=== PATIENT | female | born 1990 | race Two or more races ===

== ENCOUNTER 2016-05-13 07:57 | Emergency (ER) | payer SELFPAY ==
[2016-05-13] MEDS ORDERED: ACETAMINOPHEN 325 MG TABLET PO ONE (08:03)
[2016-05-13] MEDS ORDERED: ONDANSETRON 4 MG TAB.RAPDIS PO ONE (08:16)
--- NOTE | 2016-05-13 08:41 | ER Document Report ---
HPI - HPI Patient complains to provider of: body aches, legs tingling Onset: Other - 3 days Onset/Duration: Persistent Quality of pain: Achy Severity: Severe Pain Level: 5 Context: Patient presents emergency department with reports of not feeling well since Monday- 4 days ago. She reports her body aches and her legs are tingling. She has not been able to eat for the past 2 days. She has been drinking tea. She denies vomiting, denies abdominal pain, denies pain with void. Reports she reports works at [employer]. She did not get her influenza vaccine Associated Symptoms: Diarrhea, Fever, Nausea Exacerbated by: Denies Relieved by: Denies Similar symptoms previously: No Recently seen / treated by doctor: No - REPRODUCTIVE Reproductive: DENIES: : - DERM Skin Color: Normal Past Medical History - General Information source: Patient Last Menstrual Period: iud - Social History Smoking Status: Never Smoker Cigarette use (# per day): No Chew tobacco use (# tins/day): No Frequency of alcohol use: None Drug Abuse: None Occupation: [employer] Lives with: Family Family History: Reviewed & Not Pertinent, Other - Denied any family history of diabetes, hypertension Patient has suicidal ideation: No Patient has homicidal ideation: No - Medical History Medical History: Negative Renal/ Medical History: Denies: Hx Peritoneal Dialysis Surgical Hx: Negative - Immunizations Hx Diphtheria, Pertussis, Tetanus Vaccination: Yes Vertical Provider Document - CONSTITUTIONAL Agree With Documented VS: Yes Exam Limitations: No Limitations General Appearance: WD/WN, No Apparent Distress - nontoxic looking - INFECTION CONTROL TRAVEL OUTSIDE OF THE [place] IN LAST 30 DAYS: No - HEENT HEENT: Atraumatic, Normal ENT Exam, Normocephalic. negative: Conjuctival Injection, Pharyngeal Exudate, Pharyngeal Erythema, Tympanic Membrane Red, Tympanic Membrane Bulging - NECK Neck: Normal Inspection, Supple. negative: Lymphadenopathy-Left, Lymphadenopathy-Right - RESPIRATORY Respiratory: Breath Sounds Normal, No Respiratory Distress O2 Sat by Pulse Oximetry: 98 - CARDIOVASCULAR Cardiovascular: Tachycardia - GI/ABDOMEN Gastrointestinal: Abdomen Soft, Abdomen Non-Tender - MUSCULOSKELETAL/EXTREMETIES Musculoskeletal/Extremeties: MAEW, FROM - NEURO Level of Consciousness: Awake, Alert, Appropriate Motor/Sensory: No Motor Deficit - DERM Integumentary: Warm, Dry, No Rash Course - Re-evaluation Re-evalutation: 05/13/16 09:32 patient drinking po fluids. moderate leukocytes noted to UA. will treat for UTI , flu like sx. no tamiflu since patient has had sx since Monday-4 days 05/13/16 10:21 Patient drinking by mouth fluids has had 2 glasses of smitha cachorro without vomiting. Reports she feels better. Patient instructed on all medications importance of pushing fluids and follow up with primary care provider. Patient is nontoxic looking. HR decreased from 129 to 100. - Vital Signs Vital signs: Temp Pulse Resp BP Pulse Ox 102.0 F H 129 H 98 H 123/68 98 05/13/16 08:00 05/13/16 08:00 05/13/16 08:00 05/13/16 08:00 05/13/16 08:00 Discharge - Discharge Clinical Impression: Flu-like symptoms, Urinary tract infection Condition: Stable Disposition: HOME, SELF-CARE Instructions: Acetaminophen, Fever ([facility]), Trimethoprim-Sulfa ([facility]), Urinary Tract Infection ([facility]), Antinausea Medication ([facility]) Additional Instructions: *You have been evaluated for flu like symptoms today, body aches, fever, UTI *Increase fluid intake as discussed *Take medication as prescribed *Monitor your temperature, take Tylenol or Motrin as indicated *Follow up with a primary care provider within one week *Return to ED for worsening condition, changes, needs Prescriptions: Ondansetron [Zofran Odt 4 mg Tablet] 1 - 2 tab PO Q4H #10 tab.rapdis Sulfamethoxazole/Trimethoprim [Bactrim Ds Tablet] 1 each PO BID #10 tablet Forms: Elevated Blood Pressure, Return to Work
[2016-05-13 09:17] LABS: APPEARANCE,URINE CLOUDY; BILIRUBIN,URINE NEGATIVE (NEGATIVE); GLUCOSE, URINE NEGATIVE (NEGATIVE); KETONES,URINE 80 mg/dL (NEGATIVE); LEUKOCYTE ESTERASE,URINE MODERATE (NEGATIVE); NITRITE,URINE NEGATIVE (NEGATIVE); PROTEIN,URINE NEGATIVE (NEGATIVE); URINE SPECIFIC GRAVITY 1.029
[2016-05-13 10:21] VITALS: BP 115/67
== END 2016-05-13 10:30 | disposition home or self-care (01) ==
LOC: ER 07:57
DX: N39.0 Urinary tract infection, site not specified (principal); R52 Pain, unspecified; R20.2 Paresthesia of skin; R19.7 Diarrhea, unspecified; R50.9 Fever, unspecified; R00.0 Tachycardia, unspecified; R11.0 Nausea
CPT/HCPCS: 99283; 81025; 81001; 87804; S0119

== ENCOUNTER 2016-12-13 12:53 | Emergency (ER) | payer SELFPAY ==
[2016-12-13 13:13] VITALS: BP 116/80
--- NOTE | 2016-12-13 13:52 | ER Document Report ---
ED GI/ - General Chief Complaint: Flank Pain Stated Complaint: ABDOMINAL PAIN Time Seen by Provider: 12/13/16 13:52 Mode of Arrival: Ambulatory Information source: Patient Notes: 26 yo female hx UTI in may, c/o right flank pain yesterday, suprapubic discomfort with dysuria at urethra x 2 days. No nausea or vomiting. No fever or chills. , hx chlamydia in past. New vaginal d/c without odor. TRAVEL OUTSIDE OF THE [place] IN LAST 30 DAYS: No - Related Data Allergies/Adverse Reactions: No Known Allergies Allergy (Verified 12/13/16 13:13) Past Medical History - General Information source: Patient - Social History Smoking Status: Never Smoker Frequency of alcohol use: None Drug Abuse: None Lives with: Family Family History: Reviewed & Not Pertinent, Other - Denied any family history of diabetes, hypertension - Medical History Medical History: Negative Renal/ Medical History: Denies: Hx Peritoneal Dialysis Surgical Hx: Negative - Immunizations Hx Diphtheria, Pertussis, Tetanus Vaccination: Yes Physical Exam - Vital signs Vitals: Temp Pulse Resp BP Pulse Ox 98.8 F 74 16 116/80 100 12/13/16 13:11 12/13/16 13:11 12/13/16 13:11 12/13/16 13:11 12/13/16 13:11 Interpretation: Normal - General General appearance: Appears well, Alert In distress: None - HEENT Head: Normocephalic, Atraumatic Eyes: Normal Conjunctiva: Normal Pupils: PERRL Neck: Supple - Respiratory Respiratory status: No respiratory distress Chest status: Nontender Breath sounds: Normal Chest palpation: Normal - Cardiovascular Rhythm: Regular Heart sounds: Normal auscultation Murmur: No - Abdominal Inspection: Normal Distension: No distension Bowel sounds: Normal Tenderness: Nontender. No: Tender Organomegaly: No organomegaly - Genitourinary External exam: Normal Speculum exam: Cervix closed, Vaginal discharge - thin homogenous copius Vaginal bleeding: None - Back Back: Normal, Tender - Right lumba muscle, also has "chronic ingrown hair since April", crusted dark lesion 6mm, varigated color, pt needs dermatology evaluation and possible biopsy which I explained to the pt. No: CVA tenderness - Extremities General upper extremity: Normal inspection, Nontender, Normal color, Normal ROM , Normal temperature General lower extremity: Normal inspection, Nontender, Normal color, Normal ROM , Normal temperature, Normal weight bearing. No: Kathryn's sign - Neurological Neuro grossly intact: Yes Cognition: Normal Orientation: AAOx4 My Coma Scale Eye Opening: Spontaneous [place] Coma Scale Verbal: Oriented My Coma Scale Motor: Obeys Commands My Coma Scale Total: 15 Speech: Normal Motor strength normal: LUE, RUE, LLE, RLE Sensory: Normal - Psychological Associated symptoms: Normal affect, Normal mood - Skin Skin Temperature: Warm Skin Moisture: Dry Skin Color: Normal Notes: see above Course - Re-evaluation Re-evalutation: 12/13/16 14:39 UA is negative urinalysis is negative. She gets frequent bacterial vaginosis about every 3 months. 12/13/16 15:17 Wet prep indicative of bacterial vaginosis - Vital Signs Vital signs: Temp Pulse Resp BP Pulse Ox 98.8 F 74 16 116/80 100 12/13/16 13:11 12/13/16 13:11 12/13/16 13:11 12/13/16 13:11 12/13/16 13:11 Discharge - Discharge Clinical Impression: Bacterial vaginosis Condition: Good Disposition: HOME, SELF-CARE Instructions: Vaginosis, Bacterial ([facility]), Metronidazole ([facility]) Additional Instructions: see obgyn if persists no alcohol with the metronidizole eat more yogurt with active yeast culture Please complete the patient satisfaction survey if you get one, and return it.. If you do not receive a survey, then you can go to the [facility] website, [email or web address] and place your comments about your very good care. Thank you very much. It was a pleasure being your medical provider today. Prescriptions: Metronidazole [Flagyl 500 mg Tablet] 500 mg PO BID #14 tablet Forms: Return to Work Referrals: BEN HUNG MD [ACTIVE STAFF] - Follow up as needed
[2016-12-13 14:28] LABS: APPEARANCE,URINE SLIGHTLY-CLOUDY; BILIRUBIN,URINE NEGATIVE (NEGATIVE); GLUCOSE, URINE NEGATIVE (NEGATIVE); KETONES,URINE NEGATIVE (NEGATIVE); LEUKOCYTE ESTERASE,URINE NEGATIVE (NEGATIVE); NITRITE,URINE NEGATIVE (NEGATIVE); PROTEIN,URINE NEGATIVE (NEGATIVE); URINE SPECIFIC GRAVITY 1.018; UROBILINOGEN,URINE NEGATIVE mg/dL (<2.0)
[2016-12-13 16:13] LABS: CHLAM PCR NOT DETECTED (NOT DETECT)
== END 2016-12-13 15:23 | disposition home or self-care (01) ==
LOC: ER 12:53
DX: N76.0 Acute vaginitis (principal); B96.89 Other specified bacterial agents as the cause of diseases classified elsewhere; R10.9 Unspecified abdominal pain
CPT/HCPCS: 81001; 81025; 87086; 87210; 87491; 87591; 99284

== ENCOUNTER 2019-01-27 07:56 | Emergency (ER) | payer SELFPAY ==
[2019-01-27 09:24] LABS: ABSOLUTE LYMPHOCYTES (AUTO) 1.3 10^3/uL (0.5-4.7); ABSOLUTE MONOCYTES (AUTO) 0.3 10^3/uL (0.1-1.4); ABSOLUTE NEUT (AUTO) 4.5 10^3/uL (1.7-8.2); BASOPHILS % (AUTO) 0.5 % (0-2); EOSINOPHILS % (AUTO) 0.5 % (0-6); HEMATOCRIT 40.9 % (36.0-47.0); HEMOGLOBIN 13.4 g/dL (12.0-15.5); LYMPHOCYTES % (AUTO) 21.2 % (13-45); MEAN CORPUSCULAR HEMOGLOBIN 25.7 pg (27.0-33.4); MEAN CORPUSCULAR HGB CONC 32.9 g/dL (32.0-36.0); MEAN CORPUSCULAR VOLUME 78 fl (80-97); MONOCYTES % (AUTO) 5.3 % (3-13); PLATELET COUNT 349 10^3/uL (150-450); RED BLOOD COUNT 5.23 10^6/uL (3.72-5.28); RED CELL DISTRIBUTION WIDTH 14.4 % (11.5-14.0); SEGMENTED NEUTROPHILS % (AUTO) 72.5 % (42-78); TOTAL CELLS COUNTED % (AUTO) 100 %; WHITE BLOOD COUNT 6.2 10^3/uL (4.0-10.5)
[2019-01-27 09:39] LABS: APPEARANCE,URINE SLIGHTLY-CLOUDY; BILIRUBIN,URINE NEGATIVE (NEGATIVE); COLOR,URINE YELLOW; GLUCOSE, URINE NEGATIVE (NEGATIVE); KETONES,URINE NEGATIVE (NEGATIVE); LEUKOCYTE ESTERASE,URINE NEGATIVE (NEGATIVE); NITRITE,URINE NEGATIVE (NEGATIVE); PROTEIN,URINE NEGATIVE (NEGATIVE); URINE SPECIFIC GRAVITY 1.023; UROBILINOGEN,URINE NEGATIVE mg/dL (<2.0)
[2019-01-27 09:48] LABS: ALBUMIN 4.5 g/dL (3.5-5.0); ALKALINE PHOSPHATASE 84 U/L (38-126); ANION GAP 9 (5-19); ASPARTATE AMINO TRANSFERASE 21 U/L (14-36); BILIRUBIN,DIRECT 0.2 mg/dL (0.0-0.4); BILIRUBIN,TOTAL 0.5 mg/dL (0.2-1.3); BLOOD UREA NITROGEN 11 mg/dL (7-20); CALCIUM 9.6 mg/dL (8.4-10.2); CARBON DIOXIDE 25 mmol/L (22-30); CHLORIDE 108 mmol/L (98-107); GLUCOSE 101 mg/dL (75-110); POTASSIUM 4.8 mmol/L (3.6-5.0)
--- NOTE | 2019-01-27 10:07 | RADIOLOGY REPORT (SQ) ---
EXAM DESCRIPTION: U/S OB TRANSVAGINAL W/O DOP COMPLETED DATE/TIME: 01/27/2019 9:51 am REASON FOR STUDY: 5 weeks, bleeding with clots COMPARISON: None. TECHNIQUE: Transvaginal static and realtime grayscale images acquired of the pelvis. Additional carmen cted spectral and color Doppler images recorded. All images stored on PACs. CLINICAL AGE: 5 weeks 5 days BHCG: Pending. LIMITATIONS: None. FINDINGS: UTERUS: No visualized intrauterine . RIGHT ADNEXA: Normal ovary with normal vascular flow. No adnexal free fluid. 1.1 cm cyst. LEFT ADNEXA: Normal ovary with normal vascular flow. No adnexal free fluid. No adnexal masses. FREE FLUID: None. OTHER: No other significant finding. IMPRESSION: NO VISUALIZED INTRA- OR EXTRAUTERINE . bHCG LEVEL NOT AVAILABLE FOR CORRELATION WITH US FINDINGS. ECTOPIC CANNOT BE EXCLUDED. FOLLOW-UP ULTRASOUND AND SERIAL BHCG LEVELS STRONGLY RECOMMENDED TO ACCURATELY ASSESS STATU S. TECHNICAL DOCUMENTATION: JOB ID: [id number] [employer]- All Rights Reserved Reading location - IP/workstation name: [email or web address]
[2019-01-27 11:20] VITALS: BP 104/66
--- NOTE | 2019-01-27 11:21 | ER Document Report ---
Entered by JAQUELINE LIANG SCRIBE 01/27/19 0914 Acting as scribe for:JEZ DAY MD ED GI/ - General Chief Complaint: Vaginal Bleeding Stated Complaint: VAGINAL BLEEDING Time Seen by Provider: 01/27/19 09:07 Primary Care Provider: [facility] [Provider Group] - 01/29/19 (Call the office tomorrow to schedule an appointment for Monday.) JUAN C MILTON, GEOVANNA-C [Primary Care Provider] - Follow up as needed Mode of Arrival: Ambulatory Information source: Patient Notes: This 28-year-old female patient comes emergency room with a history of vaginal spotting that started yesterday. Today she noted some clots with spotting. There is no cramps. She did a positive home test 2 days ago. Last menstrual period was 12/18/2018. The patient is A0 TRAVEL OUTSIDE OF THE [place] IN LAST 30 DAYS: No - Related Data Allergies/Adverse Reactions: No Known Allergies Allergy (Verified 01/27/19 08:12) Past Medical History - General Information source: Patient - Social History Smoking Status: Never Smoker Cigarette use (# per day): No Frequency of alcohol use: None Drug Abuse: None Lives with: Family Family History: Reviewed & Not Pertinent, Other - Denied any family history of diabetes, hypertension Patient has suicidal ideation: No Patient has homicidal ideation: No - Immunizations Hx Diphtheria, Pertussis, Tetanus Vaccination: Yes Review of Systems - Review of Systems Constitutional: No symptoms reported EENT: No symptoms reported Cardiovascular: No symptoms reported Respiratory: No symptoms reported Gastrointestinal: No symptoms reported Genitourinary: No symptoms reported Female Genitourinary: See HPI, Last menstrual period - Dec 18, , Vaginal bleeding Musculoskeletal: No symptoms reported Skin: No symptoms reported Hematologic/Lymphatic: No symptoms reported Neurological/Psychological: No symptoms reported -: Yes All other systems reviewed and negative Physical Exam - Vital signs Vitals: Temp Pulse Resp BP Pulse Ox 99.1 F 102 H 16 138/78 H 100 01/27/19 08:00 01/27/19 08:00 01/27/19 08:00 01/27/19 08:00 01/27/19 08:00 - Notes Notes: Physical Exam: General: Alert, appears well. HEENT: Normocephalic. Atraumatic. PERRL. Extraocular movements intact. Oropharynx clear. Neck: Supple. Non-tender. Respiratory: No respiratory distress. Clear and equal breath sounds bilaterally. Cardiovascular: Regular rate and rhythm. Abdominal: Normal Inspection. Non-tender. No distension. Normal Bowel Sounds. Back: No gross abnormalities. Extremities: Moves all four extremities. Upper extremities: Normal inspection. Normal ROM. Lower extremities: Normal inspection. No edema. Normal ROM. Neurological: Normal cognition. AAOx4. Normal speech. Psychological: Normal affect. Normal Mood. Skin: Warm. Dry. Normal color. Course - Re-evaluation Re-evalutation: 01/27/19 10:44 The patient's hCG level is 40.1, blood type is O+, ultrasound does not show intrauterine . - Vital Signs Vital signs: Temp Pulse Resp BP Pulse Ox 99.1 F 102 H 16 138/78 H 100 01/27/19 08:00 01/27/19 08:00 01/27/19 08:00 01/27/19 08:00 01/27/19 08:00 - Laboratory Result Diagrams: 01/27/19 09:10 01/27/19 09:10 Laboratory results interpreted by me: 01/27/19 01/27/19 01/27/19 09:05 09:10 09:10 MCV 78 L MCH 25.7 L RDW 14.4 H Chloride 108 H Beta HCG, Quant 40.41 H Urine Blood LARGE H Urine Ascorbic Acid 40 H - Diagnostic Test Radiology reviewed: Reports reviewed - Ultrasound was unremarkable and did not show any . Discharge - Discharge Clinical Impression: Miscarriage Condition: Stable Disposition: HOME, SELF-CARE Additional Instructions: Miscarriage You have most likely had a miscarriage (medically called a "spontaneous "). The miscarriage occurred because the fetus did not develop normally. There is nothing you did to cause it, and nothing you could have done to prevent it. About one in four ends in miscarriage. As there is some risk of infection of the uterus, you should not have intercourse for one week (or until okayed by your physician). You might not have a period for six to eight weeks. You should not become again for at least three months -- the uterus requires time to get back to normal. Call the doctor or return for re-examination if there is heavy or persistent vaginal bleeding, fever, foul discharge, continued cramping pains, or abdominal pain. Call [facility] tomorrow to schedule an appointment for Monday. They generally like to repeat your hormone level and ensure that it is going down. RETURN TO THE EMERGENCY ROOM IF ANY NEW OR WORSENING SYMPTOMS. Referrals: JUAN C MILTON, REYNALDOC [Primary Care Provider] - Follow up as needed [facility] [Provider Group] - 01/29/19 (Call the office tomorrow to schedule an appointment for Monday.) Scribe Attestation: 01/27/19 09:19 I personally performed the services described in the documentation, reviewed and edited the documentation which was dictated to the scribe in my presence, and it accurately records my words and actions. I personally performed the services described in the documentation, reviewed and edited the documentation which was dictated to the scribe in my presence, and it accurately records my words and actions.
== END 2019-01-27 11:05 | disposition home or self-care (01) ==
LOC: ER 07:56
DX: O03.9 Complete or unspecified spontaneous abortion without complication (principal)
CPT/HCPCS: 36415; 76817; 80053; 81001; 84702; 85025; 86900; 86901; 99284

== ENCOUNTER 2019-03-23 04:09 | Emergency (ER) | payer OTHER ==
[2019-03-23] MEDS ORDERED: NORMAL SALINE 1000 ML 1,000 ML IV ONE ×2 (04:52→09:13)
[2019-03-23] MEDS ORDERED: ONDANSETRON HCL INJ/PF 4 MG/2 ML SDV IV ONE ×2 (04:52→09:22)
[2019-03-23 05:07] LABS: APPEARANCE,URINE CLEAR; BILIRUBIN,URINE SMALL (NEGATIVE); COLOR,URINE AMBER; GLUCOSE, URINE NEGATIVE (NEGATIVE); KETONES,URINE NEGATIVE (NEGATIVE); LEUKOCYTE ESTERASE,URINE NEGATIVE (NEGATIVE); NITRITE,URINE NEGATIVE (NEGATIVE); PROTEIN,URINE NEGATIVE (NEGATIVE)
[2019-03-23 05:08] LABS: ABSOLUTE EOSINOPHILS # (AUTO) 0.1 10^3/uL (0.0-0.6); ABSOLUTE LYMPHOCYTES (AUTO) 1.6 10^3/uL (0.5-4.7); ABSOLUTE MONOCYTES (AUTO) 0.4 10^3/uL (0.1-1.4); ABSOLUTE NEUT (AUTO) 4.6 10^3/uL (1.7-8.2); BASOPHILS % (AUTO) 0.5 % (0-2); HEMATOCRIT 41.7 % (36.0-47.0); HEMOGLOBIN 13.9 g/dL (12.0-15.5); LYMPHOCYTES % (AUTO) 23.5 % (13-45); MEAN CORPUSCULAR HGB CONC 33.3 g/dL (32.0-36.0); MEAN CORPUSCULAR VOLUME 78 fl (80-97); PLATELET COUNT 304 10^3/uL (150-450); RED BLOOD COUNT 5.34 10^6/uL (3.72-5.28); RED CELL DISTRIBUTION WIDTH 14.9 % (11.5-14.0); TOTAL CELLS COUNTED % (AUTO) 100 %; WHITE BLOOD COUNT 6.7 10^3/uL (4.0-10.5)
[2019-03-23 05:20] LABS: ALBUMIN 4.6 g/dL (3.5-5.0); ALKALINE PHOSPHATASE 158 U/L (38-126); ANION GAP 11 (5-19); ASPARTATE AMINO TRANSFERASE 292 U/L (14-36); BILIRUBIN,TOTAL 4.2 mg/dL (0.2-1.3); BLOOD UREA NITROGEN 7 mg/dL (7-20); CALCIUM 9.9 mg/dL (8.4-10.2); CARBON DIOXIDE 27 mmol/L (22-30); CHLORIDE 101 mmol/L (98-107); GLUCOSE 124 mg/dL (75-110); POTASSIUM 4.2 mmol/L (3.6-5.0); TOTAL PROTEIN 8.2 g/dL (6.3-8.2)
[2019-03-23] MEDS ORDERED: HYDROMORPHONE HCL INJ/PF 2 MG/ML AMPULE IV ONE ×2 (06:20→09:22)
--- NOTE | 2019-03-23 06:23 | ER Document Report ---
ED Medical Screen (RME) - General Chief Complaint: Flank Pain Stated Complaint: FLANK PAIN Time Seen by Provider: 03/23/19 06:17 Notes: 28-year-old female chief complaint of sharp pain in the right upper quadrant with multiple episodes of vomiting starting yesterday. Pain is significantly worsened over the night. Denies fever, flank pain, or any other complaints. Denies any surgeries or daily medications. Denies . TRAVEL OUTSIDE OF THE [place] IN LAST 30 DAYS: No - Related Data Allergies/Adverse Reactions: No Known Allergies Allergy (Verified 01/27/19 08:12) Past Medical History Renal/ Medical History: Denies: Hx Peritoneal Dialysis GI Medical History: Reports: Hx Gastroesophageal Reflux Disease - Immunizations Hx Diphtheria, Pertussis, Tetanus Vaccination: Yes Physical Exam - Vital signs Vitals: Temp Pulse Resp BP Pulse Ox 98.2 F 87 16 140/80 H 99 03/23/19 04:12 03/23/19 04:12 03/23/19 04:12 03/23/19 04:12 03/23/19 04:12 - General General appearance: Other - Patient has difficulty holding still, obviously in pain - Abdominal Tenderness: Tender, Fernandez's sign - Tender in the right upper quadrant with positive Fernandez sign, remaining abdomen benign Course - Re-evaluation Re-evalutation: I have greeted and performed a rapid initial assessment of this patient. A comprehensive ED assessment and evaluation of the patient, analysis of test results and completion of the medical decision making process will be conducted by additional ED providers. - Vital Signs Vital signs: Temp Pulse Resp BP Pulse Ox 98.2 F 87 16 140/80 H 99 03/23/19 04:14 03/23/19 04:12 03/23/19 04:14 03/23/19 04:12 03/23/19 04:14 - Laboratory Result Diagrams: 03/23/19 04:45 03/23/19 04:45 Laboratory results interpreted by me: 03/23/19 03/23/19 03/23/19 04:45 04:45 04:45 RBC 5.34 H MCV 78 L MCH 26.0 L RDW 14.9 H Glucose 124 H Total Bilirubin 4.2 H Direct Bilirubin 3.0 H AST 292 H Alkaline Phosphatase 158 H Urine Bilirubin SMALL H Urine Urobilinogen 4.0 H
--- NOTE | 2019-03-23 07:44 | RADIOLOGY REPORT (SQ) ---
EXAM DESCRIPTION: US ABDOMEN LIMITED COMPLETED DATE/TME: 03/23/2019 06:20 CLINICAL HISTORY: 28 years Female, RUQ pain, vomiting Comparison: CT, 01/19/15 LIMITATIONS: None. FINDINGS: Cholelithiasis, negative sonographic Fernandez's test, liver, a 0.8-cm diameter common bile duct, no intrahepatic ductal dilation, hepatopetal patent flow of the portal vein, 10-cm right kidney, partially obscured pancreas, visualized vasculature/abdominal aorta, and no significant ascites appear otherwise unremarkable. IMPRESSION: No acute findings. Cholelithiasis. 0.8 cm dilated common bile duct, nonspecific. No intrahepatic ductal dilation. Limitation.
--- NOTE | 2019-03-23 08:52 | ER Document Report ---
ED GI/ - General Stated Complaint: FLANK PAIN Time Seen by Provider: 03/23/19 06:17 Notes: 28-year-old female with no past medical history presents the emergency depart ment with chief complaint of sharp pain in the right upper quadrant that started on . Patient states she has had multiple episodes of nausea and vomiting that started on Monday. No appetite and patient is only eaten a couple of pretzels. Is passing gas. No bowel movement since . Denies fever, flank pain, any other complaints. Pain is located focally in the right upper quadrant. Denies any history of abdominal surgeries or daily medications. Denies . TRAVEL OUTSIDE OF THE [place] IN LAST 30 DAYS: No - Related Data Allergies/Adverse Reactions: No Known Allergies Allergy (Verified 01/27/19 08:12) Past Medical History - Social History Smoking Status: Never Smoker Family History: Reviewed & Not Pertinent, Other - Denied any family history of diabetes, hypertension Patient has suicidal ideation: No Patient has homicidal ideation: No Renal/ Medical History: Denies: Hx Peritoneal Dialysis GI Medical History: Reports: Hx Gastroesophageal Reflux Disease - Immunizations Hx Diphtheria, Pertussis, Tetanus Vaccination: Yes Review of Systems - Review of Systems Constitutional: See HPI EENT: No symptoms reported Cardiovascular: No symptoms reported Respiratory: No symptoms reported Gastrointestinal: See HPI Genitourinary: See HPI Female Genitourinary: See HPI Musculoskeletal: No symptoms reported Skin: No symptoms reported Hematologic/Lymphatic: No symptoms reported Neurological/Psychological: No symptoms reported Physical Exam - Vital signs Vitals: Temp Pulse Resp BP Pulse Ox 98.2 F 87 16 140/80 H 99 03/23/19 04:12 03/23/19 04:12 03/23/19 04:12 03/23/19 04:12 03/23/19 04:12 - Notes Notes: PHYSICAL EXAMINATION: Reviewed vital signs and charting by RN GENERAL: Alert, interacts well. No acute distress. HEAD: Normocephalic, atraumatic. EYES: Pupils equal and round. Extraocular movements intact. ENT: Oral mucosa moist, tongue midline. NECK: Full range of motion. Trachea midline. LUNGS: Clear to auscultation bilaterally, no wheezes, rales, or rhonchi. No respiratory distress. HEART: Regular rate and rhythm. No murmur ABDOMEN: soft, acute right upper quadrant tenderness to palpation, no Fernandez s ign. No distention. Bowel sounds present EXTREMITIES: Moves all 4 extremities spontaneously. No edema, No cyanosis. PSYCH: Normal affect, normal mood. SKIN: Warm, dry, normal turgor. No rashes or lesions noted. Course - Re-evaluation Re-evalutation: 03/23/19 08:48 Well-appearing in no acute distress, afebrile without jaundice, no symptoms of shock so I have low concern for cholangitis or Reynaud's pentad. Labs did show an elevated direct bilirubin and T bili. 03/23/19 09:13 I spoke with [facility] and Dr. Douglas accepted the patient for transfer for ERCP. - Vital Signs Vital signs: Temp Pulse Resp BP Pulse Ox 98.4 F 72 18 113/52 L 99 03/23/19 08:36 03/23/19 08:36 03/23/19 08:36 03/23/19 08:36 03/23/19 08:36 - Laboratory Result Diagrams: 03/23/19 04:45 03/23/19 04:45 Laboratory results interpreted by me: 03/23/19 03/23/19 03/23/19 04:45 04:45 04:45 RBC 5.34 H MCV 78 L MCH 26.0 L RDW 14.9 H Glucose 124 H Total Bilirubin 4.2 H Direct Bilirubin 3.0 H AST 292 H Alkaline Phosphatase 158 H Urine Bilirubin SMALL H Urine Urobilinogen 4.0 H Discharge - Discharge Clinical Impression: Right upper quadrant pain Cholelithiasis Qualifiers: Cholelithiasis location: gallbladder Cholecystitis presence: without cholecystitis Biliary obstruction: with biliary obstruction Qualified Code(s): K80.21 - Calculus of gallbladder without cholecystitis with obstruction Condition: Good Disposition: [facility]
[2019-03-23] MEDS ORDERED: PROMETHAZINE HCL INJ 25 MG/1 ML VIAL IV ONE (13:34)
[2019-03-23 16:21] VITALS: BP 103/61
== END 2019-03-23 16:15 | disposition short-term general hospital (02) ==
LOC: ER 04:09
DX: K80.21 Calculus of gallbladder without cholecystitis with obstruction (principal); R10.11 Right upper quadrant pain
CPT/HCPCS: 96376; 99285; 96361; 96374; 96375; 36415; 85025; 81025; 80053; 81001; 76705; J1170; J2550; J2405; J7030